=== PATIENT | male | born 1960 | race Caucasian/White ===

== ENCOUNTER 2021-07-23 16:55 | Inpatient (IN) | payer BC ==
[2021-07-23 18:13] LABS: ALT (SGPT) 27 U/L (8-55); AST (SGOT) 57 U/L (5-34); Albumin 3.7 g/dL (3.4-4.8); Alkaline Phosphatase 57 U/L (40-110); Anion Gap 16 mmol/L (10-20); BUN (Urea Nitrogen) 22 mg/dL (8.4-25.7); Bilirubin, Total 0.7 mg/dL (0.2-1.2); Calc. Creatinine Clearance 0 mL/min (70-130); Calcium 9.7 mg/dL (7.8-10.44); Carbon Dioxide 24 mmol/L (23-31); Chloride 104 mmol/L (98-107); Globulin 2.6 g/dL (2.4-3.5); Glucose 86 mg/dL (80-115); Magnesium 1.9 mg/dL (1.6-2.6); Potassium 4.5 mmol/L (3.5-5.1); Protein, Total 6.3 g/dL (5.8-8.1); Sodium 139 mmol/L (136-145)
[2021-07-23 18:23] LABS: #Monocytes 0.2 10x3/uL (0.0-1.1); #Neutrophils 2.2 10x3/uL (1.5-8.4); %Basophils 0.3 % (0.0-2.0); %Monocytes 6.4 % (0.0-10.0); %Neutrophils 65.4 % (40.0-75.0); Hemoglobin 14.8 g/dL (13.5-17.5); Mean Corpuscular HGB CONC 33.2 g/dL (32.0-36.0); Mean Corpuscular Hemoglobin 30.6 pg (27.0-33.0); Mean Corpuscular Volume 92.3 fl (81.2-95.1); Mean Platelet Volume 9.3 fl (7.4-10.4); Platelet Count 161 10x3/uL (150-450); RBC Distribution Width 13.2 % (11.5-14.5); Red Blood Cell (RBC) Count 4.83 10x6/uL (4.32-5.72); White Blood Cell (WBC) Count 3.3 10x3/uL (3.5-10.5)
[2021-07-23] MEDS ORDERED: Ventolin HFA Inhaler 60 PUFF INHALER ONE (18:23)
[2021-07-23 18:39] LABS: SARS-CoV-2 NAA Rapid Test DETECTED (NotDetected)
[2021-07-23] MEDS ORDERED: Aspirin Chewable 81 MG TAB ONE (19:15)
[2021-07-23] MEDS ORDERED: Dexamethasone 10 MG/ML VIAL ONE (19:15)
[2021-07-24] MEDS ORDERED: Ondansetron PF 4 MG/2 ML Vial IVP PRN (00:09)
[2021-07-24] MEDS ORDERED: Ondansetron ODT 4 MG TAB PO PRN (00:09)
[2021-07-24] MEDS ORDERED: Ascorbic Acid 500 mg Chewable Tablet PO SCH (00:45)
[2021-07-24] MEDS ORDERED: Zinc Sulfate 220 MG CAP PO SCH (00:45)
[2021-07-24] MEDS ORDERED: Cholecalciferol 1,000 UNITS (25 MCG) TAB PO SCH (00:45)
[2021-07-24 04:55] LABS: #Monocytes 0.1 10x3/uL (0.0-1.1); #Neutrophils 2.5 10x3/uL (1.5-8.4); %Lymphocytes 20.7 % (18.0-47.0); %Monocytes 2.8 % (0.0-10.0); %Neutrophils 75.9 % (40.0-75.0); Mean Corpuscular HGB CONC 34.1 g/dL (32.0-36.0); Mean Corpuscular Hemoglobin 31.3 pg (27.0-33.0); Mean Corpuscular Volume 91.8 fl (81.2-95.1); Mean Platelet Volume 9.5 fl (7.4-10.4); Platelet Count 173 10x3/uL (150-450); RBC Distribution Width 13.2 % (11.5-14.5); Red Blood Cell (RBC) Count 5.11 10x6/uL (4.32-5.72); White Blood Cell (WBC) Count 3.2 10x3/uL (3.5-10.5)
[2021-07-24 05:38] LABS: Anion Gap 16 mmol/L (10-20); BUN (Urea Nitrogen) 24 mg/dL (8.4-25.7); CRP (Inflammatory) 14.03 mg/dL (= or < 0.5); Calc. Creatinine Clearance 167 mL/min (70-130); Calcium 9.9 mg/dL (7.8-10.44); Carbon Dioxide 22 mmol/L (23-31); Chloride 107 mmol/L (98-107); Potassium 5.1 mmol/L (3.5-5.1); Sodium 140 mmol/L (136-145)
[2021-07-24 05:42] LABS: Glucose 165 mg/dL (80-115)
[2021-07-24] MEDS: Zinc Sulfate 220 MG CAP PO SCH (08:32)
[2021-07-24] MEDS: Enoxaparin Sodium 40 MG/0.4 ML SYRINGE SC SCH (08:32)
[2021-07-24] MEDS: Allopurinol 100 MG TAB PO SCH (08:32)
[2021-07-24] MEDS: Aspirin 81 mg Enteric Coated Tablet PO SCH (08:32)
[2021-07-24] MEDS: Cholecalciferol 1,000 UNITS (25 MCG) TAB PO SCH (08:32)
[2021-07-24] MEDS: Hydrochlorothiazide 25 MG TAB PO SCH (08:32)
[2021-07-24] MEDS: Ascorbic Acid 500 mg Chewable Tablet PO SCH (08:33)
[2021-07-24] MEDS: Furosemide 40 MG TAB PO SCH (08:33)
[2021-07-24] MEDS: Dexamethasone 20 MG/5 ML VIAL SLOW IVP SCH ×2 (08:33→20:22)
[2021-07-24] MEDS: Potassium Chloride 10 MEQ TAB PO SCH (08:33)
[2021-07-24] MEDS ORDERED: REMDESIVIR 200 MG in Sodium Chloride 0.9% 250 ML 210 ML IV SCH (09:00)
[2021-07-24] MEDS ORDERED: Dexamethasone 4 mg/ml Vial SLOW IVP SCH (09:00)
[2021-07-24] MEDS: Carvedilol 6.25 MG TAB PO SCH ×2 (09:14→20:24)
[2021-07-24] MEDS: Acetaminophen 325 MG TAB PO PRN (23:25)
[2021-07-25 06:39] LABS: ALT (SGPT) 33 U/L (8-55); AST (SGOT) 65 U/L (5-34); Albumin 3.3 g/dL (3.4-4.8); Alkaline Phosphatase 58 U/L (40-110); Bilirubin, Direct 0.1 mg/dL (0.1-0.3); Bilirubin, Total 0.4 mg/dL (0.2-1.2)
[2021-07-25] MEDS: Allopurinol 100 MG TAB PO SCH (10:37)
[2021-07-25] MEDS: Dexamethasone 20 MG/5 ML VIAL SLOW IVP SCH ×2 (10:37→20:42)
[2021-07-25] MEDS: Zinc Sulfate 220 MG CAP PO SCH (10:38)
[2021-07-25] MEDS: Hydrochlorothiazide 25 MG TAB PO SCH (10:38)
[2021-07-25] MEDS: Aspirin 81 mg Enteric Coated Tablet PO SCH (10:38)
[2021-07-25] MEDS: Potassium Chloride 10 MEQ TAB PO SCH (10:38)
[2021-07-25] MEDS: Ascorbic Acid 500 mg Chewable Tablet PO SCH (10:38)
[2021-07-25] MEDS: Furosemide 40 MG TAB PO SCH (10:38)
[2021-07-25] MEDS: Carvedilol 6.25 MG TAB PO SCH ×2 (10:39→20:42)
[2021-07-25] MEDS: Cholecalciferol 1,000 UNITS (25 MCG) TAB PO SCH (10:40)
[2021-07-25] MEDS: REMDESIVIR 100 MG in Sodium Chloride 0.9% 250 ML 230 ML IV SCH (10:41)
[2021-07-25] MEDS: Enoxaparin Sodium 40 MG/0.4 ML SYRINGE SC SCH (14:36)
[2021-07-26] MEDS: Guaifenesin DM 100-10/5 ML UDCUP PO PRN (00:30)
[2021-07-26 07:07] LABS: Anion Gap 15 mmol/L (10-20); BUN (Urea Nitrogen) 27 mg/dL (8.4-25.7); CRP (Inflammatory) 2.68 mg/dL (= or < 0.5); Calc. Creatinine Clearance 178 mL/min (70-130); Calcium 10.5 mg/dL (7.8-10.44); Carbon Dioxide 30 mmol/L (23-31); Chloride 103 mmol/L (98-107); Glucose 144 mg/dL (80-115); Sodium 143 mmol/L (136-145)
[2021-07-26 07:08] LABS: #Monocytes 0.6 10x3/uL (0.0-1.1); #Neutrophils 11.3 10x3/uL (1.5-8.4); %Basophils 0.2 % (0.0-2.0); %Lymphocytes 6.9 % (18.0-47.0); %Monocytes 4.8 % (0.0-10.0); %Neutrophils 86.9 % (40.0-75.0); Hemoglobin 16.3 g/dL (13.5-17.5); Mean Corpuscular HGB CONC 33.5 g/dL (32.0-36.0); Mean Corpuscular Hemoglobin 30.8 pg (27.0-33.0); Mean Corpuscular Volume 91.7 fl (81.2-95.1); Mean Platelet Volume 9.8 fl (7.4-10.4); Platelet Count 287 10x3/uL (150-450); White Blood Cell (WBC) Count 12.9 10x3/uL (3.5-10.5)
[2021-07-26] MEDS: Dexamethasone 20 MG/5 ML VIAL SLOW IVP SCH ×2 (09:32→20:06)
[2021-07-26] MEDS: Enoxaparin Sodium 40 MG/0.4 ML SYRINGE SC SCH ×2 (09:32→20:06)
[2021-07-26] MEDS: REMDESIVIR 100 MG in Sodium Chloride 0.9% 250 ML 230 ML IV SCH (09:32)
[2021-07-26] MEDS: Zinc Sulfate 220 MG CAP PO SCH (09:33)
[2021-07-26] MEDS: Cholecalciferol 1,000 UNITS (25 MCG) TAB PO SCH (09:33)
[2021-07-26] MEDS: Ascorbic Acid 500 mg Chewable Tablet PO SCH (09:33)
[2021-07-26] MEDS: Allopurinol 100 MG TAB PO SCH (09:33)
[2021-07-26] MEDS: Potassium Chloride 10 MEQ TAB PO SCH (09:33)
[2021-07-26] MEDS: Aspirin 81 mg Enteric Coated Tablet PO SCH (09:34)
[2021-07-26] MEDS: Carvedilol 6.25 MG TAB PO SCH ×2 (09:34→20:07)
[2021-07-26] MEDS: Hydrochlorothiazide 25 MG TAB PO SCH (09:34)
[2021-07-26] MEDS: Furosemide 40 MG TAB PO SCH (09:34)
[2021-07-26] MEDS: Acetaminophen 325 MG TAB PO PRN (14:23)
[2021-07-27 05:35] LABS: Anion Gap 14 mmol/L (10-20); BUN (Urea Nitrogen) 30 mg/dL (8.4-25.7); CRP (Inflammatory) 1.32 mg/dL (= or < 0.5); Calc. Creatinine Clearance 174 mL/min (70-130); Calcium 10.8 mg/dL (7.8-10.44); Carbon Dioxide 31 mmol/L (23-31); Chloride 102 mmol/L (98-107); Glucose 148 mg/dL (80-115); Potassium 4.7 mmol/L (3.5-5.1); Sodium 142 mmol/L (136-145)
[2021-07-27 06:18] LABS: #Monocytes 0.6 10x3/uL (0.0-1.1); %Basophils 0.2 % (0.0-2.0); %Lymphocytes 9.4 % (18.0-47.0); %Monocytes 5.9 % (0.0-10.0); %Neutrophils 83.5 % (40.0-75.0); Hemoglobin 16.8 g/dL (13.5-17.5); Mean Corpuscular HGB CONC 32.8 g/dL (32.0-36.0); Mean Corpuscular Hemoglobin 30.4 pg (27.0-33.0); Mean Corpuscular Volume 92.8 fl (81.2-95.1); Mean Platelet Volume 9.5 fl (7.4-10.4); Platelet Count 326 10x3/uL (150-450); RBC Distribution Width 12.7 % (11.5-14.5); Red Blood Cell (RBC) Count 5.52 10x6/uL (4.32-5.72); White Blood Cell (WBC) Count 10.7 10x3/uL (3.5-10.5)
[2021-07-27] MEDS: Hydrochlorothiazide 25 MG TAB PO SCH (07:53)
[2021-07-27] MEDS: Zinc Sulfate 220 MG CAP PO SCH (07:53)
[2021-07-27] MEDS: Carvedilol 6.25 MG TAB PO SCH ×2 (07:53→20:38)
[2021-07-27] MEDS: Furosemide 40 MG TAB PO SCH (07:53)
[2021-07-27] MEDS: Potassium Chloride 10 MEQ TAB PO SCH (07:53)
[2021-07-27] MEDS: Aspirin 81 mg Enteric Coated Tablet PO SCH (07:53)
[2021-07-27] MEDS: Allopurinol 100 MG TAB PO SCH (07:53)
[2021-07-27] MEDS: Cholecalciferol 1,000 UNITS (25 MCG) TAB PO SCH (07:53)
[2021-07-27] MEDS: Ascorbic Acid 500 mg Chewable Tablet PO SCH (07:54)
[2021-07-27] MEDS: Dexamethasone 20 MG/5 ML VIAL SLOW IVP SCH ×2 (07:54→20:38)
[2021-07-27] MEDS: Enoxaparin Sodium 40 MG/0.4 ML SYRINGE SC SCH ×2 (07:54→20:37)
[2021-07-27] MEDS: REMDESIVIR 100 MG in Sodium Chloride 0.9% 250 ML 230 ML IV SCH (07:54)
[2021-07-27] MEDS: Acetaminophen 325 MG TAB PO PRN ×2 (10:32→20:37)
[2021-07-27 10:35] LABS: Base Excess (BEa) 7.4 mEq/L (-2.0 to +3.0); CO2 Tension 43.9 mmHg (35.0-45.0); Carboxyhemoglobin (COHb) 0.2 gm% (0.0-3.0); Hemoglobin (Hb) 16.9 g/dL (14.0-18.0); O2 Tension (PaO2), arterial 46.3 mmHg (> 80.0); Potassium - ABG Lab 4.5 mmol/L (3.70-5.30); Puncture Site LRA; pH, Arterial 7.48 (7.35-7.45)
[2021-07-27 10:40] LABS: ALV-art Gradient 576.175 mmHg (0-20)
[2021-07-27] MEDS ORDERED: Sodium Chloride 0.65% Nasal 44 ML BOT EA NARE PRN (23:09)
[2021-07-28 05:53] LABS: #Basophils 0.1 10x3/uL (0.0-0.2); #Monocytes 0.8 10x3/uL (0.0-1.1); #Neutrophils 11.2 10x3/uL (1.5-8.4); %Basophils 0.4 % (0.0-2.0); %Lymphocytes 8.6 % (18.0-47.0); %Monocytes 5.6 % (0.0-10.0); %Neutrophils 83.1 % (40.0-75.0); Hemoglobin 17.1 g/dL (13.5-17.5); Mean Corpuscular HGB CONC 33.5 g/dL (32.0-36.0); Mean Corpuscular Hemoglobin 30.4 pg (27.0-33.0); Mean Corpuscular Volume 90.7 fl (81.2-95.1); Mean Platelet Volume 9.7 fl (7.4-10.4); Platelet Count 427 10x3/uL (150-450); RBC Distribution Width 12.4 % (11.5-14.5); Red Blood Cell (RBC) Count 5.62 10x6/uL (4.32-5.72); White Blood Cell (WBC) Count 13.5 10x3/uL (3.5-10.5)
[2021-07-28 06:14] LABS: Anion Gap 18 mmol/L (10-20); BUN (Urea Nitrogen) 29 mg/dL (8.4-25.7); CRP (Inflammatory) 0.77 mg/dL (= or < 0.5); Calc. Creatinine Clearance 174 mL/min (70-130); Calcium 10.8 mg/dL (7.8-10.44); Carbon Dioxide 26 mmol/L (23-31); Chloride 101 mmol/L (98-107); Glucose 138 mg/dL (80-115); Potassium 4.9 mmol/L (3.5-5.1); Sodium 140 mmol/L (136-145)
[2021-07-28] MEDS: Ascorbic Acid 500 mg Chewable Tablet PO SCH (08:17)
[2021-07-28] MEDS: Hydrochlorothiazide 25 MG TAB PO SCH (08:17)
[2021-07-28] MEDS: Aspirin 81 mg Enteric Coated Tablet PO SCH (08:17)
[2021-07-28] MEDS: Allopurinol 100 MG TAB PO SCH (08:17)
[2021-07-28] MEDS: Potassium Chloride 10 MEQ TAB PO SCH (08:17)
[2021-07-28] MEDS: Dexamethasone 20 MG/5 ML VIAL SLOW IVP SCH ×2 (08:18→20:15)
[2021-07-28] MEDS: Carvedilol 6.25 MG TAB PO SCH ×2 (08:18→20:15)
[2021-07-28] MEDS: Furosemide 40 MG TAB PO SCH (08:18)
[2021-07-28] MEDS: REMDESIVIR 100 MG in Sodium Chloride 0.9% 250 ML 230 ML IV SCH (08:18)
[2021-07-28] MEDS: Cholecalciferol 1,000 UNITS (25 MCG) TAB PO SCH (08:18)
[2021-07-28] MEDS: Enoxaparin Sodium 40 MG/0.4 ML SYRINGE SC SCH (08:18)
[2021-07-28] MEDS: Zinc Sulfate 220 MG CAP PO SCH (08:18)
[2021-07-29] MEDS: Acetaminophen 325 MG TAB PO PRN ×2 (04:09→20:01)
[2021-07-29 06:11] LABS: #Basophils 0.1 10x3/uL (0.0-0.2); #Monocytes 0.8 10x3/uL (0.0-1.1); #Neutrophils 11.8 10x3/uL (1.5-8.4); %Basophils 0.5 % (0.0-2.0); %Lymphocytes 8.9 % (18.0-47.0); %Monocytes 5.3 % (0.0-10.0); Hemoglobin 16.9 g/dL (13.5-17.5); Mean Corpuscular HGB CONC 34.7 g/dL (32.0-36.0); Mean Corpuscular Hemoglobin 30.6 pg (27.0-33.0); Mean Corpuscular Volume 88.1 fl (81.2-95.1); Mean Platelet Volume 9.3 fl (7.4-10.4); Platelet Count 449 10x3/uL (150-450); RBC Distribution Width 12.5 % (11.5-14.5); Red Blood Cell (RBC) Count 5.53 10x6/uL (4.32-5.72); White Blood Cell (WBC) Count 14.4 10x3/uL (3.5-10.5)
[2021-07-29 06:32] LABS: Anion Gap 15 mmol/L (10-20); BUN (Urea Nitrogen) 30 mg/dL (8.4-25.7); Calc. Creatinine Clearance 165 mL/min (70-130); Calcium 10.6 mg/dL (7.8-10.44); Carbon Dioxide 27 mmol/L (23-31); Chloride 101 mmol/L (98-107); Glucose 149 mg/dL (80-115); Potassium 4.9 mmol/L (3.5-5.1); Sodium 138 mmol/L (136-145)
[2021-07-29 09:24] LABS: Phosphorus 2.9 mg/dL (2.3-4.7)
[2021-07-29 09:27] LABS: ALT (SGPT) 63 U/L (8-55); AST (SGOT) 30 U/L (5-34); Albumin 3.4 g/dL (3.4-4.8); Alkaline Phosphatase 61 U/L (40-110); Bilirubin, Direct 0.5 mg/dL (0.1-0.3); Protein, Total 6.4 g/dL (5.8-8.1)
[2021-07-29 09:28] LABS: CRP (Inflammatory) Less than 0.50 mg/dL (= or < 0.5); Magnesium 2.2 mg/dL (1.6-2.6)
[2021-07-29] MEDS: Aspirin 81 mg Enteric Coated Tablet PO SCH (09:32)
[2021-07-29] MEDS: Ascorbic Acid 500 mg Chewable Tablet PO SCH (09:32)
[2021-07-29] MEDS: Potassium Chloride 10 MEQ TAB PO SCH (09:32)
[2021-07-29] MEDS: Allopurinol 100 MG TAB PO SCH (09:32)
[2021-07-29] MEDS: Hydrochlorothiazide 25 MG TAB PO SCH (09:32)
[2021-07-29] MEDS: Cholecalciferol 1,000 UNITS (25 MCG) TAB PO SCH (09:32)
[2021-07-29] MEDS: Furosemide 40 MG/4 ML VIAL SLOW IVP SCH (09:33)
[2021-07-29] MEDS: Carvedilol 6.25 MG TAB PO SCH ×2 (09:33→20:02)
[2021-07-29] MEDS: Dexamethasone 20 MG/5 ML VIAL SLOW IVP SCH ×2 (09:33→20:01)
[2021-07-29] MEDS: Zinc Sulfate 220 MG CAP PO SCH (09:33)
[2021-07-29] MEDS: Pantoprazole 40 MG VIAL IVP SCH ×2 (09:34→20:01)
[2021-07-30 05:42] LABS: #Basophils 0.1 10x3/uL (0.0-0.2); #Monocytes 0.8 10x3/uL (0.0-1.1); #Neutrophils 13.8 10x3/uL (1.5-8.4); %Basophils 0.7 % (0.0-2.0); %Lymphocytes 7.1 % (18.0-47.0); %Monocytes 4.9 % (0.0-10.0); %Neutrophils 84.1 % (40.0-75.0); Hemoglobin 17.8 g/dL (13.5-17.5); Mean Corpuscular HGB CONC 34.8 g/dL (32.0-36.0); Mean Corpuscular Hemoglobin 30.7 pg (27.0-33.0); Mean Corpuscular Volume 88.3 fl (81.2-95.1); Mean Platelet Volume 9.2 fl (7.4-10.4); Platelet Count 482 10x3/uL (150-450); RBC Distribution Width 12.7 % (11.5-14.5); White Blood Cell (WBC) Count 16.4 10x3/uL (3.5-10.5)
[2021-07-30 05:57] LABS: ALT (SGPT) 52 U/L (8-55); AST (SGOT) 19 U/L (5-34); Albumin 3.4 g/dL (3.4-4.8); Alkaline Phosphatase 62 U/L (40-110); Anion Gap 14 mmol/L (10-20); BUN (Urea Nitrogen) 28 mg/dL (8.4-25.7); Bilirubin, Total 0.7 mg/dL (0.2-1.2); CRP (Inflammatory) Less than 0.50 mg/dL (= or < 0.5); Calc. Creatinine Clearance 139 mL/min (70-130); Calcium 10.7 mg/dL (7.8-10.44); Carbon Dioxide 28 mmol/L (23-31); Chloride 101 mmol/L (98-107); Globulin 2.5 g/dL (2.4-3.5); Glucose 165 mg/dL (80-115); Potassium 5.1 mmol/L (3.5-5.1); Protein, Total 5.9 g/dL (5.8-8.1); Sodium 138 mmol/L (136-145)
[2021-07-30] MEDS: Dexamethasone 20 MG/5 ML VIAL SLOW IVP SCH ×2 (08:38→20:39)
[2021-07-30] MEDS: Furosemide 40 MG/4 ML VIAL SLOW IVP SCH (08:38)
[2021-07-30] MEDS: Pantoprazole 40 MG VIAL IVP SCH ×2 (08:38→20:39)
[2021-07-30] MEDS: Cholecalciferol 1,000 UNITS (25 MCG) TAB PO SCH (08:39)
[2021-07-30] MEDS: Zinc Sulfate 220 MG CAP PO SCH (08:39)
[2021-07-30] MEDS: Hydrochlorothiazide 25 MG TAB PO SCH (08:39)
[2021-07-30] MEDS: Carvedilol 6.25 MG TAB PO SCH ×2 (08:39→20:38)
[2021-07-30] MEDS: Potassium Chloride 10 MEQ TAB PO SCH (08:39)
[2021-07-30] MEDS: Allopurinol 100 MG TAB PO SCH (08:39)
[2021-07-30] MEDS: Aspirin 81 mg Enteric Coated Tablet PO SCH (08:39)
[2021-07-30] MEDS: Ascorbic Acid 500 mg Chewable Tablet PO SCH (08:39)
[2021-07-30] MEDS: Acetaminophen 325 MG TAB PO PRN ×2 (16:16→22:03)
[2021-07-31 06:45] LABS: Hemoglobin 18.7 g/dL (13.5-17.5); Mean Corpuscular HGB CONC 34.6 g/dL (32.0-36.0); Mean Corpuscular Hemoglobin 30.6 pg (27.0-33.0); Mean Corpuscular Volume 88.5 fl (81.2-95.1); Mean Platelet Volume 9.2 fl (7.4-10.4); Platelet Count 539 10x3/uL (150-450); RBC Distribution Width 13.2 % (11.5-14.5); Red Blood Cell (RBC) Count 6.11 10x6/uL (4.32-5.72); White Blood Cell (WBC) Count 21.3 10x3/uL (3.5-10.5)
[2021-07-31 07:05] LABS: MDiff Complete? YES
[2021-07-31 07:06] LABS: Iron 110 ug/dL (65-175); Iron Binding Capacity, Total 330 mcg/dL (261-462)
[2021-07-31 07:10] LABS: Band 2 % (5-11); Lymphocytes 5 % (21-51); Monocytes 6 % (0-10); Reactive Lymphocytes 4 % (0-10)
[2021-07-31 07:11] LABS: Neutrophil 3 % (42-75)
[2021-07-31 07:12] LABS: ALT (SGPT) 60 U/L (8-55); AST (SGOT) 27 U/L (5-34); Albumin 3.7 g/dL (3.4-4.8); Alkaline Phosphatase 73 U/L (40-110); Anion Gap 15 mmol/L (10-20); BUN (Urea Nitrogen) 28 mg/dL (8.4-25.7); Bilirubin, Total 0.7 mg/dL (0.2-1.2); CRP (Inflammatory) Less than 0.50 mg/dL (= or < 0.5); Calc. Creatinine Clearance 137 mL/min (70-130); Carbon Dioxide 29 mmol/L (23-31); Chloride 98 mmol/L (98-107); Globulin 3.2 g/dL (2.4-3.5); Glucose 171 mg/dL (80-115); Potassium 5.2 mmol/L (3.5-5.1); Protein, Total 6.9 g/dL (5.8-8.1); Sodium 137 mmol/L (136-145)
[2021-07-31] MEDS: Cholecalciferol 1,000 UNITS (25 MCG) TAB PO SCH (08:07)
[2021-07-31] MEDS: Aspirin 81 mg Enteric Coated Tablet PO SCH (08:07)
[2021-07-31] MEDS: Ascorbic Acid 500 mg Chewable Tablet PO SCH (08:07)
[2021-07-31] MEDS: Carvedilol 6.25 MG TAB PO SCH ×2 (08:07→21:05)
[2021-07-31] MEDS: Allopurinol 100 MG TAB PO SCH (08:07)
[2021-07-31] MEDS: Hydrochlorothiazide 25 MG TAB PO SCH (08:07)
[2021-07-31] MEDS: Potassium Chloride 10 MEQ TAB PO SCH (08:07)
[2021-07-31] MEDS: Dexamethasone 20 MG/5 ML VIAL SLOW IVP SCH (08:08)
[2021-07-31] MEDS: Zinc Sulfate 220 MG CAP PO SCH (08:08)
[2021-07-31] MEDS: Furosemide 40 MG/4 ML VIAL SLOW IVP SCH (08:08)
[2021-07-31] MEDS: Pantoprazole 40 MG VIAL IVP SCH ×2 (08:08→21:06)
[2021-07-31] MEDS: Acetaminophen 325 MG TAB PO PRN (21:06)
[2021-08-01] MEDS: Acetaminophen 325 MG TAB PO PRN ×2 (05:51→20:41)
[2021-08-01 05:56] LABS: Hemoglobin 17.9 g/dL (13.5-17.5); Mean Corpuscular HGB CONC 34.4 g/dL (32.0-36.0); Mean Corpuscular Hemoglobin 30.1 pg (27.0-33.0); Mean Corpuscular Volume 87.4 fl (81.2-95.1); Mean Platelet Volume 9.2 fl (7.4-10.4); Platelet Count 555 10x3/uL (150-450); RBC Distribution Width 12.9 % (11.5-14.5); Red Blood Cell (RBC) Count 5.95 10x6/uL (4.32-5.72); White Blood Cell (WBC) Count 22.5 10x3/uL (3.5-10.5)
[2021-08-01 05:57] LABS: ALT (SGPT) 48 U/L (8-55); AST (SGOT) 19 U/L (5-34); Albumin 3.5 g/dL (3.4-4.8); Alkaline Phosphatase 64 U/L (40-110); Anion Gap 19 mmol/L (10-20); BUN (Urea Nitrogen) 32 mg/dL (8.4-25.7); Bilirubin, Total 0.7 mg/dL (0.2-1.2); CRP (Inflammatory) Less than 0.50 mg/dL (= or < 0.5); Calc. Creatinine Clearance 144 mL/min (70-130); Calcium 10.8 mg/dL (7.8-10.44); Carbon Dioxide 22 mmol/L (23-31); Chloride 99 mmol/L (98-107); Globulin 2.8 g/dL (2.4-3.5); Glucose 120 mg/dL (80-115); Potassium 4.6 mmol/L (3.5-5.1); Protein, Total 6.3 g/dL (5.8-8.1); Sodium 135 mmol/L (136-145)
[2021-08-01 07:09] LABS: Band 2 % (5-11); Eosinophils 1 % (0-10); Lymphocytes 10 % (21-51); Monocytes 2 % (0-10); Myelocyte 1 % (0-0); Reactive Lymphocytes 4 % (0-10)
[2021-08-01 07:11] LABS: Neutrophil 80 % (42-75)
[2021-08-01 07:13] LABS: Large Platelets MODERATE; Platelet Morphology Comment Appears Increased; Small Platelets MODERATE
[2021-08-01 07:14] LABS: MDiff Complete? YES
[2021-08-01] MEDS: Dexamethasone 20 MG/5 ML VIAL SLOW IVP SCH (08:09)
[2021-08-01] MEDS: NIFEdipine XL 30 MG TAB PO SCH (08:09)
[2021-08-01] MEDS: Ascorbic Acid 500 mg Chewable Tablet PO SCH (08:09)
[2021-08-01] MEDS: Cholecalciferol 1,000 UNITS (25 MCG) TAB PO SCH (08:09)
[2021-08-01] MEDS: Pantoprazole 40 MG VIAL IVP SCH ×2 (08:09→20:40)
[2021-08-01] MEDS: Carvedilol 6.25 MG TAB PO SCH ×2 (08:09→20:40)
[2021-08-01] MEDS: Allopurinol 100 MG TAB PO SCH (08:10)
[2021-08-01] MEDS: Zinc Sulfate 220 MG CAP PO SCH (08:10)
[2021-08-01] MEDS: Aspirin 81 mg Enteric Coated Tablet PO SCH (08:14)
[2021-08-01] MEDS: Senokot S 8.6-50 MG TAB PO PRN (10:37)
[2021-08-01 14:41] LABS: Band 4 % (5-11); Hemoglobin 18.4 g/dL (13.5-17.5); Lymphocytes 4 % (21-51); MDiff Complete? YES; Mean Corpuscular HGB CONC 34.9 g/dL (32.0-36.0); Mean Corpuscular Hemoglobin 30.8 pg (27.0-33.0); Mean Corpuscular Volume 88.3 fl (81.2-95.1); Mean Platelet Volume 8.6 fl (7.4-10.4); Monocytes 4 % (0-10); Neutrophil 86 % (42-75); Platelet Count 558 10x3/uL (150-450); Platelet Morphology Comment Appears Increased; RBC Distribution Width 12.9 % (11.5-14.5); Reactive Lymphocytes 2 % (0-10); Red Blood Cell (RBC) Count 5.97 10x6/uL (4.32-5.72); White Blood Cell (WBC) Count 22.6 10x3/uL (3.5-10.5)
[2021-08-02] MEDS: Acetaminophen 325 MG TAB PO PRN ×2 (01:53→20:19)
[2021-08-02 06:02] LABS: #Basophils 0.1 10x3/uL (0.0-0.2); #Eosinphils 0.1 10x3/uL (0.0-0.5); #Monocytes 1.2 10x3/uL (0.0-1.1); %Basophils 0.7 % (0.0-2.0); %Eosinophils 0.3 % (0.0-6.0); %Lymphocytes 8.4 % (18.0-47.0); %Monocytes 6.4 % (0.0-10.0); ALT (SGPT) 36 U/L (8-55); AST (SGOT) 19 U/L (5-34); Albumin 3.2 g/dL (3.4-4.8); Alkaline Phosphatase 62 U/L (40-110); Anion Gap 16 mmol/L (10-20); BUN (Urea Nitrogen) 34 mg/dL (8.4-25.7); Bilirubin, Total 0.6 mg/dL (0.2-1.2); Calc. Creatinine Clearance 136 mL/min (70-130); Calcium 10.2 mg/dL (7.8-10.44); Carbon Dioxide 23 mmol/L (23-31); Chloride 101 mmol/L (98-107); Globulin 2.8 g/dL (2.4-3.5); Glucose 149 mg/dL (80-115); Hemoglobin 17.5 g/dL (13.5-17.5); Mean Corpuscular HGB CONC 35.1 g/dL (32.0-36.0); Mean Corpuscular Volume 88.3 fl (81.2-95.1); Mean Platelet Volume 8.8 fl (7.4-10.4); Platelet Count 441 10x3/uL (150-450); Potassium 4.4 mmol/L (3.5-5.1); RBC Distribution Width 13.2 % (11.5-14.5); Red Blood Cell (RBC) Count 5.65 10x6/uL (4.32-5.72); Sodium 136 mmol/L (136-145); White Blood Cell (WBC) Count 18.7 10x3/uL (3.5-10.5)
[2021-08-02] MEDS: Allopurinol 100 MG TAB PO SCH (08:29)
[2021-08-02] MEDS: Cholecalciferol 1,000 UNITS (25 MCG) TAB PO SCH (08:29)
[2021-08-02] MEDS: Ascorbic Acid 500 mg Chewable Tablet PO SCH (08:29)
[2021-08-02] MEDS: NIFEdipine XL 30 MG TAB PO SCH (08:29)
[2021-08-02] MEDS: Zinc Sulfate 220 MG CAP PO SCH (08:29)
[2021-08-02] MEDS: Aspirin 81 mg Enteric Coated Tablet PO SCH (08:29)
[2021-08-02] MEDS: Dexamethasone 20 MG/5 ML VIAL SLOW IVP SCH (08:29)
[2021-08-02] MEDS: Pantoprazole 40 MG VIAL IVP SCH ×2 (08:29→20:20)
[2021-08-02] MEDS: Carvedilol 6.25 MG TAB PO SCH ×2 (08:35→20:19)
[2021-08-02] MEDS: Senokot S 8.6-50 MG TAB PO PRN (10:11)
[2021-08-02] MEDS: Guaifenesin DM 100-10/5 ML UDCUP PO PRN (20:19)
[2021-08-03 07:40] LABS: ALT (SGPT) 36 U/L (8-55); AST (SGOT) 20 U/L (5-34); Albumin 3.4 g/dL (3.4-4.8); Alkaline Phosphatase 64 U/L (40-110); Anion Gap 17 mmol/L (10-20); BUN (Urea Nitrogen) 25 mg/dL (8.4-25.7); Bilirubin, Total 0.8 mg/dL (0.2-1.2); Calc. Creatinine Clearance 166 mL/min (70-130); Calcium 10.9 mg/dL (7.8-10.44); Carbon Dioxide 25 mmol/L (23-31); Chloride 101 mmol/L (98-107); Globulin 2.7 g/dL (2.4-3.5); Glucose 95 mg/dL (80-115); Potassium 4.6 mmol/L (3.5-5.1); Protein, Total 6.1 g/dL (5.8-8.1); Sodium 138 mmol/L (136-145)
[2021-08-03 07:43] LABS: Hemoglobin 17.7 g/dL (13.5-17.5); Mean Corpuscular HGB CONC 34.3 g/dL (32.0-36.0); Mean Corpuscular Hemoglobin 30.2 pg (27.0-33.0); Mean Corpuscular Volume 88.1 fl (81.2-95.1); Mean Platelet Volume 8.8 fl (7.4-10.4); Platelet Count 498 10x3/uL (150-450); RBC Distribution Width 12.9 % (11.5-14.5); Red Blood Cell (RBC) Count 5.86 10x6/uL (4.32-5.72); White Blood Cell (WBC) Count 25.5 10x3/uL (3.5-10.5)
[2021-08-03] MEDS: Carvedilol 6.25 MG TAB PO SCH ×2 (08:04→20:47)
[2021-08-03] MEDS: Ascorbic Acid 500 mg Chewable Tablet PO SCH (08:04)
[2021-08-03] MEDS: NIFEdipine XL 30 MG TAB PO SCH (08:04)
[2021-08-03] MEDS: Aspirin 81 mg Enteric Coated Tablet PO SCH (08:04)
[2021-08-03] MEDS: Allopurinol 100 MG TAB PO SCH (08:04)
[2021-08-03] MEDS: Zinc Sulfate 220 MG CAP PO SCH (08:04)
[2021-08-03] MEDS: Cholecalciferol 1,000 UNITS (25 MCG) TAB PO SCH (08:04)
[2021-08-03] MEDS: Dexamethasone 20 MG/5 ML VIAL SLOW IVP SCH (08:05)
[2021-08-03] MEDS: Pantoprazole 40 MG VIAL IVP SCH ×2 (08:05→20:47)
[2021-08-03 09:14] LABS: Lymphocytes 11 % (21-51); Monocytes 5 % (0-10)
[2021-08-03 09:15] LABS: Neutrophil 84 % (42-75)
[2021-08-03 09:16] LABS: MDiff Complete? YES; Platelet Morphology Comment Appears Adequate; RBC Morphology Normal
[2021-08-03] MEDS: Acetaminophen 325 MG TAB PO PRN (20:47)
[2021-08-03] MEDS: traZODone HCl 50 MG TAB PO PRN (20:48)
[2021-08-04] MEDS: NIFEdipine XL 30 MG TAB PO SCH (09:08)
[2021-08-04] MEDS: Carvedilol 6.25 MG TAB PO SCH ×2 (09:09→20:57)
[2021-08-04] MEDS: Dexamethasone 20 MG/5 ML VIAL SLOW IVP SCH (09:09)
[2021-08-04] MEDS: Cholecalciferol 1,000 UNITS (25 MCG) TAB PO SCH (09:10)
[2021-08-04] MEDS: Aspirin 81 mg Enteric Coated Tablet PO SCH (09:10)
[2021-08-04] MEDS: Ascorbic Acid 500 mg Chewable Tablet PO SCH (09:10)
[2021-08-04] MEDS: Zinc Sulfate 220 MG CAP PO SCH (09:10)
[2021-08-04] MEDS: Pantoprazole 40 MG VIAL IVP SCH ×2 (09:10→20:57)
[2021-08-04] MEDS: Allopurinol 100 MG TAB PO SCH (09:10)
[2021-08-04] MEDS: Senokot S 8.6-50 MG TAB PO PRN ×2 (10:32→18:38)
[2021-08-04] MEDS: Polyethylene Glycol 3350 17 GM Packet PO PRN (11:46)
[2021-08-04 12:23] LABS: Bilirubin Neg (Negative); Blood, Urine 250 (Negative); Clarity Cloudy (Clear); Glucose, Urine (Dipstick) Normal (Negative); Ketone, Urine Negative (Negative); Leukocyte 500 (Negative); Nitrite Negative (Negative); Protein, Urine (Dipstick) 30 mg/dl (Neg-Trace)
[2021-08-04 12:25] LABS: Urine Culture Reflex No No
[2021-08-04 12:30] LABS: Bacteria/HPF 2+ HPF (None Seen); RBC/HPF Greater than 50 HPF (0-3); Transitional Epithelial 0-3 HPF (None Seen); WBC/HPF Greater Than 50 HPF (0-3); Yeast-Budding Rare HPF (None Seen)
[2021-08-04 12:31] LABS: Squamous Epithelial 0-3 HPF (0-3)
[2021-08-04] MEDS: traZODone HCl 50 MG TAB PO PRN (20:57)
[2021-08-04] MEDS: Acetaminophen 325 MG TAB PO PRN (20:57)
[2021-08-05 05:54] LABS: Hemoglobin 15.5 g/dL (13.5-17.5); Mean Corpuscular HGB CONC 33.8 g/dL (32.0-36.0); Mean Corpuscular Hemoglobin 30.4 pg (27.0-33.0); Mean Corpuscular Volume 89.8 fl (81.2-95.1); Mean Platelet Volume 9.2 fl (7.4-10.4); Platelet Count 344 10x3/uL (150-450); RBC Distribution Width 13.2 % (11.5-14.5); White Blood Cell (WBC) Count 21.3 10x3/uL (3.5-10.5)
[2021-08-05 06:04] LABS: Anion Gap 16 mmol/L (10-20); BUN (Urea Nitrogen) 18 mg/dL (8.4-25.7); Calc. Creatinine Clearance 184 mL/min (70-130); Calcium 9.9 mg/dL (7.8-10.44); Carbon Dioxide 23 mmol/L (23-31); Chloride 105 mmol/L (98-107); Glucose 137 mg/dL (80-115); Potassium 4.5 mmol/L (3.5-5.1); Sodium 139 mmol/L (136-145)
[2021-08-05 06:56] LABS: Band 1 % (5-11); Lymphocytes 2 % (21-51); Monocytes 6 % (0-10); Neutrophil 87 % (42-75); Reactive Lymphocytes 4 % (0-10)
[2021-08-05 06:57] LABS: Platelet Morphology Comment Appears Adequate
[2021-08-05 06:58] LABS: MDiff Complete? YES; RBC Morphology Normal
[2021-08-05] MEDS: Zinc Sulfate 220 MG CAP PO SCH (08:26)
[2021-08-05] MEDS: Carvedilol 6.25 MG TAB PO SCH ×2 (08:26→20:30)
[2021-08-05] MEDS: NIFEdipine XL 30 MG TAB PO SCH (08:26)
[2021-08-05] MEDS: Ascorbic Acid 500 mg Chewable Tablet PO SCH (08:26)
[2021-08-05] MEDS: Aspirin 81 mg Enteric Coated Tablet PO SCH (08:26)
[2021-08-05] MEDS: Cholecalciferol 1,000 UNITS (25 MCG) TAB PO SCH (08:26)
[2021-08-05] MEDS: Allopurinol 100 MG TAB PO SCH (08:26)
[2021-08-05] MEDS: Dexamethasone 20 MG/5 ML VIAL SLOW IVP SCH (08:27)
[2021-08-05] MEDS: Pantoprazole 40 MG VIAL IVP SCH ×2 (08:27→20:30)
[2021-08-05] MEDS: traZODone HCl 50 MG TAB PO PRN (20:30)
[2021-08-05] MEDS: Acetaminophen 325 MG TAB PO PRN (20:30)
[2021-08-05] MEDS: Polyethylene Glycol 3350 17 GM Packet PO PRN (20:47)
[2021-08-06 04:22] LABS: Anion Gap 15 mmol/L (10-20); BUN (Urea Nitrogen) 16 mg/dL (8.4-25.7); Calc. Creatinine Clearance 184 mL/min (70-130); Calcium 9.8 mg/dL (7.8-10.44); Carbon Dioxide 24 mmol/L (23-31); Chloride 106 mmol/L (98-107); Glucose 124 mg/dL (80-115); Magnesium 2.2 mg/dL (1.6-2.6); Potassium 4.5 mmol/L (3.5-5.1); Sodium 140 mmol/L (136-145)
[2021-08-06 05:09] VITALS: BMI 41.8
[2021-08-06 07:20] LABS: #Monocytes 1.1 10x3/uL (0.0-1.1); #Neutrophils 13.7 10x3/uL (1.5-8.4); %Basophils 0.2 % (0.0-2.0); %Eosinophils 0.2 % (0.0-6.0); %Lymphocytes 10.2 % (18.0-47.0); %Monocytes 6.8 % (0.0-10.0); %Neutrophils 81.6 % (40.0-75.0); Hemoglobin 16.6 g/dL (13.5-17.5); Mean Corpuscular HGB CONC 33.7 g/dL (32.0-36.0); Mean Corpuscular Hemoglobin 30.4 pg (27.0-33.0); Mean Corpuscular Volume 90.3 fl (81.2-95.1); Mean Platelet Volume 8.8 fl (7.4-10.4); Platelet Count 384 10x3/uL (150-450); RBC Distribution Width 13.4 % (11.5-14.5); Red Blood Cell (RBC) Count 5.46 10x6/uL (4.32-5.72); White Blood Cell (WBC) Count 16.8 10x3/uL (3.5-10.5)
[2021-08-06] MEDS: Cholecalciferol 1,000 UNITS (25 MCG) TAB PO SCH (08:51)
[2021-08-06] MEDS: Allopurinol 100 MG TAB PO SCH (08:51)
[2021-08-06] MEDS: Aspirin 81 mg Enteric Coated Tablet PO SCH (08:51)
[2021-08-06] MEDS: Ascorbic Acid 500 mg Chewable Tablet PO SCH (08:51)
[2021-08-06] MEDS: NIFEdipine XL 30 MG TAB PO SCH (08:51)
[2021-08-06] MEDS: Pantoprazole 40 MG VIAL IVP SCH ×2 (08:52→21:08)
[2021-08-06] MEDS: Zinc Sulfate 220 MG CAP PO SCH (08:52)
[2021-08-06] MEDS: Dexamethasone 20 MG/5 ML VIAL SLOW IVP SCH (08:52)
[2021-08-06] MEDS: Carvedilol 6.25 MG TAB PO SCH ×2 (08:52→21:07)
[2021-08-06] MEDS: cefTRIAXone\\ROCEPHIN 1 GM in Sodium Chloride 0.9% 100 ML IVPB SCH (11:30)
[2021-08-06] MEDS ORDERED: Pantoprazole 40 MG VIAL ONE (20:59)
[2021-08-06] MEDS: traZODone HCl 50 MG TAB PO PRN (21:13)
[2021-08-06] MEDS: Acetaminophen 325 MG TAB PO PRN (21:14)
[2021-08-07 08:47] LABS: %Basophils 0.2 % (0.0-2.0); %Eosinophils 0.2 % (0.0-6.0); %Lymphocytes 6.8 % (18.0-47.0); %Monocytes 6.3 % (0.0-10.0); %Neutrophils 85.6 % (40.0-75.0); Hemoglobin 16.8 g/dL (13.5-17.5); Mean Corpuscular HGB CONC 34.1 g/dL (32.0-36.0); Mean Corpuscular Hemoglobin 30.8 pg (27.0-33.0); Mean Corpuscular Volume 90.3 fl (81.2-95.1); Mean Platelet Volume 8.5 fl (7.4-10.4); Platelet Count 333 10x3/uL (150-450); RBC Distribution Width 13.4 % (11.5-14.5); Red Blood Cell (RBC) Count 5.45 10x6/uL (4.32-5.72); White Blood Cell (WBC) Count 15.2 10x3/uL (3.5-10.5)
[2021-08-07 08:51] LABS: Anion Gap 14 mmol/L (10-20); BUN (Urea Nitrogen) 19 mg/dL (8.4-25.7); Calc. Creatinine Clearance 165 mL/min (70-130); Calcium 10.2 mg/dL (7.8-10.44); Carbon Dioxide 28 mmol/L (23-31); Chloride 102 mmol/L (98-107); Glucose 70 mg/dL (80-115); Potassium 4.8 mmol/L (3.5-5.1); Sodium 139 mmol/L (136-145)
[2021-08-07] MEDS: Acetaminophen 325 MG TAB PO PRN ×2 (09:02→21:04)
[2021-08-07] MEDS: Ascorbic Acid 500 mg Chewable Tablet PO SCH (09:04)
[2021-08-07] MEDS: Aspirin 81 mg Enteric Coated Tablet PO SCH (09:05)
[2021-08-07] MEDS: Cholecalciferol 1,000 UNITS (25 MCG) TAB PO SCH (09:06)
[2021-08-07] MEDS: Zinc Sulfate 220 MG CAP PO SCH (09:06)
[2021-08-07] MEDS: Carvedilol 6.25 MG TAB PO SCH ×2 (09:07→21:03)
[2021-08-07] MEDS: Allopurinol 100 MG TAB PO SCH (09:08)
[2021-08-07] MEDS: NIFEdipine XL 30 MG TAB PO SCH (09:08)
[2021-08-07] MEDS: Pantoprazole 40 MG VIAL IVP SCH ×2 (09:10→21:04)
[2021-08-07] MEDS: Dexamethasone 20 MG/5 ML VIAL SLOW IVP SCH (09:11)
[2021-08-07] MEDS: cefTRIAXone\\ROCEPHIN 1 GM in Sodium Chloride 0.9% 100 ML IVPB SCH (12:30)
[2021-08-07] MEDS: traZODone HCl 50 MG TAB PO PRN (21:03)
[2021-08-08 04:44] LABS: Anion Gap 13 mmol/L (10-20); BUN (Urea Nitrogen) 19 mg/dL (8.4-25.7); Calc. Creatinine Clearance 182 mL/min (70-130); Carbon Dioxide 26 mmol/L (23-31); Chloride 103 mmol/L (98-107); Glucose 148 mg/dL (80-115); Potassium 4.6 mmol/L (3.5-5.1); Sodium 137 mmol/L (136-145)
[2021-08-08 04:51] LABS: #Monocytes 0.8 10x3/uL (0.0-1.1); #Neutrophils 6.3 10x3/uL (1.5-8.4); %Basophils 0.2 % (0.0-2.0); %Eosinophils 0.5 % (0.0-6.0); %Monocytes 9.6 % (0.0-10.0); %Neutrophils 74.9 % (40.0-75.0); Hemoglobin 15.4 g/dL (13.5-17.5); Mean Corpuscular HGB CONC 34.5 g/dL (32.0-36.0); Mean Corpuscular Volume 89.9 fl (81.2-95.1); Mean Platelet Volume 8.9 fl (7.4-10.4); Platelet Count 321 10x3/uL (150-450); RBC Distribution Width 13.2 % (11.5-14.5); Red Blood Cell (RBC) Count 4.97 10x6/uL (4.32-5.72); White Blood Cell (WBC) Count 8.4 10x3/uL (3.5-10.5)
[2021-08-08] MEDS: Dexamethasone 20 MG/5 ML VIAL SLOW IVP SCH (08:22)
[2021-08-08] MEDS: NIFEdipine XL 30 MG TAB PO SCH (08:23)
[2021-08-08] MEDS: Carvedilol 6.25 MG TAB PO SCH (08:23)
[2021-08-08] MEDS: Allopurinol 100 MG TAB PO SCH (08:23)
[2021-08-08] MEDS: Zinc Sulfate 220 MG CAP PO SCH (08:23)
[2021-08-08] MEDS: Ascorbic Acid 500 mg Chewable Tablet PO SCH (08:23)
[2021-08-08] MEDS: Cholecalciferol 1,000 UNITS (25 MCG) TAB PO SCH (08:23)
[2021-08-08] MEDS: Aspirin 81 mg Enteric Coated Tablet PO SCH (08:23)
[2021-08-08] MEDS: Pantoprazole 40 MG VIAL IVP SCH (08:25)
[2021-08-08 12:26] VITALS: BP 126/75; TEMP 97.2
[2021-08-08] MEDS: cefTRIAXone\\ROCEPHIN 1 GM in Sodium Chloride 0.9% 100 ML IVPB SCH (12:30)
== END 2021-08-08 15:32 | disposition home or self-care (01) | DRG 177 ==
LOC: CSHERS 16:55 → UNDOADMIN 22:00 → CSHTELE 22:00
PROVIDERS: ADMIT Family Medicine; ATTEND Internal Medicine
PROC: 3E0333Z Introduction of Anti-inflammatory into Peripheral Vein, Percutaneous Approach (ICD-10-PCS; 2021-07-23)
PROC: XW033E5 Introduction of Remdesivir Anti-infective into Peripheral Vein, Percutaneous Approach, New Technology Group 5 (ICD-10-PCS; 2021-07-23)
PROC: 8E0ZXY6 Isolation (ICD-10-PCS; principal; 2021-07-24)
DX: U07.1 COVID-19 (principal); A41.89 Other specified sepsis; J96.01 Acute respiratory failure with hypoxia; J12.82 Pneumonia due to coronavirus disease 2019; N39.0 Urinary tract infection, site not specified; Z68.41 Body mass index [BMI] 40.0-44.9, adult; K92.1 Melena; M10.9 Gout, unspecified; K59.00 Constipation, unspecified; E66.9 Obesity, unspecified; I10 Essential (primary) hypertension; D75.1 Secondary polycythemia; E21.0 Primary hyperparathyroidism; Z79.82 Long term (current) use of aspirin; Z79.899 Other long term (current) drug therapy
CPT/HCPCS: 36415; 36600; 71045; 71275; 80048; 80053; 80076; 81001; 82274; 82805; 83540; 83550; 83735; 83880; 83970; 84100; 84145; 84484; 85025; 85041; 85048; 85060; 85379; 86140; 87077; 87086; 87186; 93005; 94640; 94660; 94760; 96374; C9113; J0696; J1100; J1650; J1940; J3490; J7050; U0002